=== PATIENT | female | born 1955 | race Caucasian/White ===

== ENCOUNTER 2016-06-19 13:18 | Outpatient (CLI) | payer OTHER ==
[~2016-06-19 13:18] MED LIST: HYDR25TA4 PO; LIP20; MULT-1089 PO; VALS80TA2 PO; WARF5TAB76 PO; WARF7.5T22 PO
== END 2016-06-19 18:10 | disposition home or self-care (01) ==
LOC: SMA 13:18
DX: Z12.31 Encounter for screening mammogram for malignant neoplasm of breast (principal)
CPT/HCPCS: 77067; G0202